=== PATIENT | male | born 1985 | race African-American/Black ===

== ENCOUNTER 2023-10-05 09:52 | Inpatient (IN) | payer OTHER ==
[2023-10-05 10:15] VITALS: BMI 23.1
[2023-10-05] MEDS ORDERED: guaiFENesin 600 MG TABLET.ER (FP) PO PRN (11:30)
[2023-10-05] MEDS ORDERED: BENZONATATE 200 MG CAPSULE PO PRN (11:30)
[2023-10-05] MEDS ORDERED: NICOTINE POLACRILEX 2 MG GUM BUC PRN (11:30)
[2023-10-05] MEDS ORDERED: ACETAMINOPHEN 325 MG TABLET (FP) PO PRN (11:30)
[2023-10-05] MEDS ORDERED: BENZOCAINE/MENTHOL (CHLORASEPTIC ) LOZENGE MM PRN (11:30)
[2023-10-05] MEDS ORDERED: BISMUTH SUBSALICYLATE 262 MG/15 ML BTL PO PRN (11:30)
[2023-10-05] MEDS ORDERED: LOPERAMIDE HCL 2 MG CAPSULE PO PRN (11:30)
[2023-10-05] MEDS ORDERED: NALOXONE HCL 0.4 MG/ML VIAL IM PRN (11:30)
[2023-10-05] MEDS ORDERED: ONDANSETRON *ODT* 4 MG TABLET SL PRN (11:30)
[2023-10-05] MEDS ORDERED: POLYETHYLENE GLYCOL (HEALTHYLAX) 3350 17 GM PACKET PO PRN (11:30)
[2023-10-05] MEDS ORDERED: IBUPROFEN 400 MG TABLET (FP) PO PRN (11:30)
[2023-10-05] MEDS ORDERED: MAG HYDROX/AL HYDROX/SIMETH 30 ML UNIT-DOSE CUP PO PRN (11:30)
[2023-10-05] MEDS ORDERED: MAGNESIUM HYDROX 2400MG/30ML ORAL SUSPENSION 30 ML CUP PO PRN (11:30)
[2023-10-05] MEDS ORDERED: NALOXONE HCL (KLOXXADO) 8 MG SPRAY NS PRN (11:30)
[2023-10-05] MEDS ORDERED: DICYCLOMINE HCL 10 MG CAPSULE PO PRN (11:30)
[2023-10-05] MEDS: PRENATAL VITAMINS W/ FOLIC ACID TABLET (FP) PO SCH (13:23)
[2023-10-05] MEDS: hydrOXYzine PAMOATE 25 MG CAPSULE (FP) PO PRN ×2 (13:56→22:13)
[2023-10-05] MEDS: THIAMINE HCL 100 MG TABLET (FP) PO SCH (22:13)
[2023-10-05] MEDS: MELATONIN 5 MG TABLETS PO SCH (22:13)
[2023-10-05] MEDS: METHOCARBAMOL 500 MG TABLET PO PRN (22:13)
[2023-10-06] MEDS: PRENATAL VITAMINS W/ FOLIC ACID TABLET (FP) PO SCH (10:56)
[2023-10-06 11:36] LABS: HEMOGLOBIN 13.6 GM/dL (11.7-16.9); MCHC 32.2 g/dl (32.0-35.9); MEAN PLT VOLUME 8.6 fl (7.5-11.1); PLATELET COUNT 185 10^3/uL (134-434); RBC 4.38 M/mm3 (4.00-5.60); RDW 13.1 % (11.9-15.9); WHITE BLOOD COUNT 5.2 K/mm3 (4.0-10.0)
[2023-10-06 11:51] LABS: CHLORIDE 106 mmol/L (98-107); POTASSIUM 4.2 mmol/L (3.5-5.1); SODIUM 141 mmol/L (136-145)
[2023-10-06 12:06] LABS: CALCIUM 8.8 mg/dL (8.5-10.1); GLUCOSE,RANDOM 100 mg/dL (74-106)
[2023-10-06 12:08] LABS: ALBUMIN 3.4 g/dl (3.4-5.0); ANION GAP 6 mmol/L (4-13); BLOOD UREA NITROGEN 8.2 mg/dL (7-18); CO2 29 mmol/L (21-32)
[2023-10-06 12:09] LABS: SGPT/ALT 47 U/L (13-61)
[2023-10-06 12:11] LABS: BILIRUBIN,TOTAL 0.7 mg/dL (0.2-1); CREATININE 0.8 mg/dL (0.55-1.3); SGOT/AST 74 U/L (15-37)
[2023-10-06 12:12] LABS: TOT PROT 6.5 g/dl (6.4-8.2)
[2023-10-06 12:13] LABS: ALK PHOS 60 U/L (45-117)
[2023-10-06] MEDS: IBUPROFEN 600 MG TABLET (FP) PO PRN (14:38)
[2023-10-06] MEDS ORDERED: chlordiazePOXIDE HCL 25 MG CAPSULE PO PRN (15:05)
[2023-10-06] MEDS: chlordiazePOXIDE HCL 25 MG CAPSULE PO SCH ×2 (16:42→22:21)
[2023-10-06] MEDS ORDERED: ARTIFICIAL TEARS OPHTHALMIC DROPS OS PRN (18:26)
[2023-10-06] MEDS: THIAMINE HCL 100 MG TABLET (FP) PO SCH (22:21)
[2023-10-06] MEDS: MELATONIN 5 MG TABLETS PO SCH (22:21)
[2023-10-07] MEDS: chlordiazePOXIDE HCL 25 MG CAPSULE PO SCH ×4 (05:26→22:14)
[2023-10-07] MEDS: PRENATAL VITAMINS W/ FOLIC ACID TABLET (FP) PO SCH (10:18)
[2023-10-07] MEDS: METHOCARBAMOL 500 MG TABLET PO PRN (10:20)
[2023-10-07] MEDS: hydrOXYzine PAMOATE 25 MG CAPSULE (FP) PO PRN (10:20)
[2023-10-07] MEDS: THIAMINE HCL 100 MG TABLET (FP) PO SCH (22:14)
[2023-10-07] MEDS: MELATONIN 5 MG TABLETS PO SCH (22:14)
[2023-10-07] MEDS: QUEtiapine FUMARATE 100 MG TABLET (FP) PO SCH (22:14)
[2023-10-08] MEDS: chlordiazePOXIDE HCL 25 MG CAPSULE PO SCH ×4 (05:55→22:24)
[2023-10-08] MEDS: PRENATAL VITAMINS W/ FOLIC ACID TABLET (FP) PO SCH (10:47)
[2023-10-08] MEDS: IBUPROFEN 600 MG TABLET (FP) PO PRN (22:23)
[2023-10-08] MEDS: THIAMINE HCL 100 MG TABLET (FP) PO SCH (22:23)
[2023-10-08] MEDS: QUEtiapine FUMARATE 100 MG TABLET (FP) PO SCH (22:23)
[2023-10-08] MEDS: MELATONIN 5 MG TABLETS PO SCH (22:24)
[2023-10-08] MEDS ORDERED: TRIMETHOBENZAMIDE HCL 200MG/2ML INJ IM PRN (23:31)
[2023-10-09] MEDS ORDERED: chlordiazePOXIDE HCL 10 MG CAPSULE PO PRN
[2023-10-09] MEDS: chlordiazePOXIDE HCL 10 MG CAPSULE PO SCH ×5 (05:20→22:55)
[2023-10-09] MEDS: PRENATAL VITAMINS W/ FOLIC ACID TABLET (FP) PO SCH (10:56)
[2023-10-09] MEDS: METHOCARBAMOL 500 MG TABLET PO PRN (10:58)
[2023-10-09] MEDS: hydrOXYzine PAMOATE 25 MG CAPSULE (FP) PO PRN (10:59)
[2023-10-09 18:09] VITALS: RESP 18
[2023-10-09] MEDS: THIAMINE HCL 100 MG TABLET (FP) PO SCH (22:55)
[2023-10-09] MEDS: MELATONIN 5 MG TABLETS PO SCH (22:55)
[2023-10-09] MEDS: QUEtiapine FUMARATE 100 MG TABLET (FP) PO SCH (22:55)
[2023-10-10] MEDS ORDERED: chlordiazePOXIDE HCL 10 MG CAPSULE PO SCH (05:00)
[2023-10-10 06:30] VITALS: BP 131/82; PULSE 103; TEMP 97.6
[2023-10-10] MEDS: PRENATAL VITAMINS W/ FOLIC ACID TABLET (FP) PO SCH (10:26)
[2023-10-11] MEDS ORDERED: chlordiazePOXIDE HCL 10 MG CAPSULE PO ONE (05:00)
== END 2023-10-10 13:52 | disposition home or self-care (01) | DRG 775 ==
LOC: YASAS 09:52 → Y3N 13:06
PROVIDERS: ADMIT Allergy & Immunology; ATTEND Allergy & Immunology
PROC: HZ2ZZZZ Detoxification Services for Substance Abuse Treatment (ICD-10-PCS; principal; 2023-10-05)
DX: F10.230 Alcohol dependence with withdrawal, uncomplicated (principal); F16.20 Hallucinogen dependence, uncomplicated; F12.20 Cannabis dependence, uncomplicated; F17.210 Nicotine dependence, cigarettes, uncomplicated; F43.10 Post-traumatic stress disorder, unspecified; G47.00 Insomnia, unspecified; Z62.810 Personal history of physical and sexual abuse in childhood; Z28.310 Unvaccinated for COVID-19; Z28.9 Immunization not carried out for unspecified reason; Z56.0 Unemployment, unspecified; Z59.01 Sheltered homelessness; Z88.8 Allergy status to other drugs, medicaments and biological substances
CPT/HCPCS: 36415; 80053; 80307; 85027; 86780; 87635; 93005; 93010; Q0162